=== PATIENT | female | born 1985 | race Caucasian/White ===

== ENCOUNTER 2025-03-18 06:33 | Day surgery (SDC) | payer OTHER, SELFPAY ==
[2025-03-04 08:55] LABS: Hematocrit 39.1 % (37.0-47.0); Hemoglobin 13.1 g/dL (12.0-16.0); Mean Corp Hgb Conc. 33.5 g/dL (33.0-37.0); Mean Corpuscular Volume 90.5 fL (81.0-99.0); Nucleated Red Blood Cells % 0 %; Platelet Count 271 10^3/uL (130-400); Red Cell Dist. Width 14.4 % (11.5-14.5)
[2025-03-04 09:16] LABS: Blood Urea Nitrogen 10 mg/dl (7-17); Calcium 9.3 mg/dl (8.4-10.2); Carbon Dioxide 29 mmol/L (22-30); Chloride 103 mmol/L (98-107); Glucose 76 mg/dl (70-99); Potassium 4.3 mmol/L (3.5-5.1); Sodium 139 mmol/L (135-145); eGFR > 60.00
[2025-03-04 13:55] VITALS: BMI 19.8
[2025-03-18] VITALS (7 sets, daily range): BP systolic 103–126; BP diastolic 62–84; BMI 19.8
[2025-03-18 11:17] LABS: HCG, Urine Qualitative Screen Negative
[2025-03-18] MEDS: TYLENOL 1000 MG PO (11:22)
[2025-03-18] MEDS: TRANSDERM-SCOP 1 PATCH TRANSDERM (12:54)
[2025-03-18] MEDS: TORADOL 15 MG IV (15:35)
== END 2025-03-18 16:33 | disposition home or self-care (01) ==
LOC: SDS 06:33
PROVIDERS: ATTENDING PHYSICIAN Obstetrics & Gynecology; FAMILY PHYSICIAN Family Medicine
DX: Z30.2 Encounter for sterilization (principal)
CPT/HCPCS: 58661; 80048; 81025; 85025; 86850; 86900; 86901; 88302